=== PATIENT | female | born 1965 | race Two or more races ===

== ENCOUNTER 2020-07-28 14:05 | Emergency (ER) | payer OTHER ==
[~2020-07-28] VITALS: Ht 162.6 cm; Wt 72.6 kg
[2020-07-28 17:31] VITALS: BP 120/84
[2020-07-28] MEDS ORDERED: cefTRIAXone SOD 1,000 MG VL IM ONE (20:15)
[2020-07-28] MEDS ORDERED: DOXYCYCLINE 100 MG TAB/CAP PO ONE (20:15)
== END 2020-07-28 22:03 | disposition home or self-care (01) ==
LOC: ER 14:05
DX: U07.1 COVID-19 (principal); Z90.710 Acquired absence of both cervix and uterus
CPT/HCPCS: 36415; 71045; 87426; 93005; 96372; 99285; J0696